=== PATIENT | female | born 1955 | race Caucasian/White ===

== ENCOUNTER 2022-03-17 07:21 | Inpatient (IN) | payer MEDICARE ==
[~2022-03-17] VITALS: Ht 165.1 cm; Wt 69.4 kg
[2022-03-17 08:00] VITALS: BP 140/71
[2022-03-17] MEDS ORDERED: BLOOD SUGAR DIAGNOSTIC 1 EACH STRIP IN ONE (08:00)
[2022-03-17] MEDS ORDERED: LORAZEPAM 0.5 MG TABLET PO PRN (08:00)
[2022-03-17] MEDS ORDERED: CALC500T89 PO (08:14)
[2022-03-17] MEDS ORDERED: LACT1CAP63 PO (08:14)
[2022-03-17] MEDS ORDERED: LEVO137T24 PO (08:14)
[2022-03-17] MEDS ORDERED: OMEP40CA21 PO (08:14)
[2022-03-17] MEDS ORDERED: CALC625T15 PO (08:14)
[2022-03-17] MEDS ORDERED: CHOL400C8 PO (08:14)
[2022-03-17] MEDS ORDERED: ESCI10TA PO (08:14)
[2022-03-17] MEDS ORDERED: LORA-259 PO (08:14)
[2022-03-17] MEDS ORDERED: PRAV40TA3 PO (08:14)
--- NOTE | 2022-03-17 09:00 | NUR ---
GPS/RN RECEIVED PT DIRECT ADMIT ON 5150 FOR DTS FROM [facility] ER ADMITTING ORDERS FROM DR NICOLE RECEIVED AND CARRIED OUT. ON FACE TO FACE ASSESSMENT NO SI OR HI REPORTED. ELFEGO MCEKON NP MADE AWARE OF ADMISSION. MEDS ARE READY TO RECONCILE. PROPERTY CHECKED FOR CONTRABAND. WILL CONTINUE TO MONITOR Q15MIN FOR SAFETY AND BEHAVIOR.
--- NOTE | 2022-03-17 09:15 | NUR ---
MEENA Clinical Note: Pt placed on a 5150 hold for danger to self. Pt was brought to the hospital due to having suicidal thoughts and wanting to jump of a bridge. Patient currently resides at home located at [address] [place] [address]; ([phone]). Patient lives with her . Patient would want to return back home when stable. SW will contact pt's daughter Vika ([phone]) to further discuss pt's treatment/discharge plan.
--- NOTE | 2022-03-17 09:15 | NUR ---
MEENA Initial Discharge Note: Patient currently resides at home located at [address] [place] [address]; ([phone]). Patient lives with her . Patient would want to return back home when stable. MEENA will contact pt's daughter Vika ([phone]) to further discuss pt's treatment/discharge plan. MEENA will work with the MD, treatment team, and family to help coordinate appropriate discharge.
--- NOTE | 2022-03-17 09:59 | NUR ---
MEENA Family Contact: SW spoke with patient's daughter Vika ([phone]) to gather collateral and discuss treatment/discharge plan. Daughter stated that pt lives with her. She stated that any new medications the pt takes she says that she is "allergic". She requested to speak to the psychiatrist. Notified Dr. Patel.
[2022-03-17] MEDS: LORAZEPAM 1 MG TABLET PO PRN ×2 (13:24→21:21)
[2022-03-17] MEDS: Fluoxetine 10 mg capsule PO SCH (14:49)
[2022-03-17] MEDS: MAG HYDROX/AL HYDROX/SIMETH 30 ML UDC PO PRN (15:13)
[2022-03-17 16:00] VITALS: BP 151/78
[2022-03-17] MEDS: ATORVASTATIN 10 MG TABLET PO SCH ×2 (17:07→17:52)
--- NOTE | 2022-03-17 19:30 | NUR ---
TAIL WORKER NOTES: RECEIVED PT IN HER ROOM, AWAKE, SITTING ON HER BED. A/O X3. CALM. PATIENT ABLE TO VERBALIZE NEEDS AND WANTS. AMBULATORY WITHOUT ASSISTANCE. PT DENIES SI/HI. ON ROOM AIR. BREATHING EVEN AND UNLABORED. NO ACUTE DISTRESS NOTED. NO C/O PAIN AT THIS TIME. SAFETY MEASURES IN PLACE. WILL CONTINUE TO MONITOR FOR SAFETY AND BEHAVIOR.
[2022-03-17 20:00] VITALS: BP 132/69
[2022-03-17] MEDS: QUETIAPINE FUMARATE 25 MG TABLET PO SCH (21:21)
--- NOTE | 2022-03-17 22:00 | NUR ---
MANAGER ADOBE NOTES: GIVEN PRN ATIVAN 1 MG PER PATIENT REQUEST. NOTED PATIENT A LITTLE ANXIOUS. ENCOURAGED PATIENT TO VERBALIZE FEELINGS. WILL CONTINUE TO MONITOR CLOSELY.
--- NOTE | 2022-03-17 22:15 | NUR ---
CARDIOPULMONARY TECHNOLOGIST CHIEF NOTES: PATIENT REFUSED ROUTINE SEROQUEL PATIENT STATED "I DO NOT WANT TO TAKE SEROQUEL WITH THE PROZAC WHICH I TOOK EARLIER, IT MIGHT MAKE ME FEEL SICK". EXPLAINED THE RISKS AND BENEFITS. OFFERED X3. PATIENT STILL REFUSED.
--- NOTE | 2022-03-17 23:30 | NUR ---
MAT INSPECTOR NOTES: ATIVAN EFFECTIVE. PATIENT SLEEPING AT THIS TIME. CALM. NO ANXIOUSNESS/AGITATION NOTED. WILL CONTINUE TO MONITOR CLOSELY FOR SAFETY AND BEHAVIOR.
--- NOTE | 2022-03-18 06:53 | NUR ---
COMPLIANCE REVIEWER NOTES: PATIENT IN HER ROOM SLEEPING. CALM. EASILY AROUSED. NO ACUTE DISTRESS NOTED. PATIENT SLEPT COMFORTABLE AND WELL. ALL NEEDS ANTICIPATED AND RENDERED. SAFETY MEASURES IN PLACE. WILL ENDORSE TO ONCOMING SHIFT FOR CONTINUITY OF CARE.
[2022-03-18] MEDS ORDERED: LEVOTHYROXINE SODIUM 100 MCG TABLET PO SCH (07:30)
[2022-03-18 07:44] LABS: ALBUMIN 3.7 g/dL (3.4-5.0); BILIRUBIN,TOTAL 0.4 mg/dL (0.2-1.0); CALCIUM, SERUM 8.3 mg/dL (8.5-10.1); CREATININE 0.8 mg/dL (0.6-1.3); POTASSIUM 4.4 mmol/L (3.5-5.1); TOTAL PROTEIN, SERUM 6.3 g/dL (6.4-8.2)
[2022-03-18 08:00] VITALS: BP 119/70
[2022-03-18] MEDS: CHOLECALCIFEROL 1,000 UNIT TABLET (VIT D3) PO SCH (08:15)
[2022-03-18] MEDS: LACTOBACILLUS RHAMNOSUS GG 1 EACH CAP.SPRINK PO SCH (08:15)
[2022-03-18] MEDS: Fluoxetine 10 mg capsule PO SCH (08:21)
[2022-03-18 08:52] LABS: THYROID STIMULATING HORMONE 3.516 uIU/mL (0.358-3.74)
[2022-03-18] MEDS: CALCIUM CARBONATE (1250) 500 MG TABLET PO SCH (09:00)
[2022-03-18] MEDS ORDERED: LEVOTHYROXINE SODIUM 137 MCG TABLET PO SCH (09:00)
[2022-03-18] MEDS ORDERED: PANTOPRAZOLE 40 MG TABLET.DR PO SCH (09:00)
--- NOTE | 2022-03-18 10:00 | NUR ---
GPS/RN PT WAS SELECTIVE WITH AM MEDS. MARCO POKER MACHINE ATTENDANT AND MD MADE AWARE.
[2022-03-18] MEDS: MAGNESIUM HYDROXIDE 30 ML UDC PO PRN (10:22)
[2022-03-18] MEDS: MAG HYDROX/AL HYDROX/SIMETH 30 ML UDC PO PRN ×2 (11:48→21:24)
[2022-03-18] MEDS: LORAZEPAM 1 MG TABLET PO PRN (12:07)
[2022-03-18 16:00] VITALS: BP 131/78
[2022-03-18] MEDS: ATORVASTATIN 10 MG TABLET PO SCH (16:33)
[2022-03-18 19:36] VITALS: BP 126/64
[2022-03-18 20:03] VITALS: BP 126/64
[2022-03-18] MEDS: MIRTAZAPINE 15 MG TABLET PO SCH (21:23)
[2022-03-18] MEDS: QUETIAPINE FUMARATE 25 MG TABLET PO SCH ×3 (21:23→22:00)
[2022-03-19] MEDS: LORAZEPAM 1 MG TABLET PO PRN ×2 (01:28→13:59)
[2022-03-19] MEDS: MAG HYDROX/AL HYDROX/SIMETH 30 ML UDC PO PRN ×2 (01:28→13:54)
--- NOTE | 2022-03-19 04:41 | NUR ---
FLAT AFFECT, DEPRESSED, TALKING TO ROOM MATE, SELECTIVE WITH MEDICATION, REFUSED SEROQUEL STATING " I DON'T TAKE THAT MEDICATION, I WILL SPEAK TO MY DOCTOR ABOUT IT. TOOK ONLY REMERON. ATIVAN GIVEN.
[2022-03-19] MEDS: SYNTHROID 100 MCG PO SCH (07:12)
[2022-03-19 08:00] VITALS: BP 128/64
[2022-03-19] MEDS ORDERED: PANTOPRAZOLE 40 MG/PACK PACK PO SCH (11:00)
[2022-03-19] MEDS: OMEPRAZOLE 40 MG PO SCH (11:28)
[2022-03-19] MEDS: LACTOBACILLUS RHAMNOSUS GG 1 EACH CAP.SPRINK PO SCH (11:29)
[2022-03-19] MEDS: CHOLECALCIFEROL 1,000 UNIT TABLET (VIT D3) PO SCH (11:30)
[2022-03-19] MEDS: CALCIUM CARBONATE (1250) 500 MG TABLET PO SCH (11:30)
[2022-03-19] MEDS: KETOROLAC TROMETHAMINE 10 MG TABLET PO PRN ×2 (12:15→18:31)
--- NOTE | 2022-03-19 14:50 | NUR ---
RN-CO: NOTIFIED DR ENCARNACION REGARDING HER 72 HOUR HOLD EXPIRING TODAY.
[2022-03-19 16:00] VITALS: BP 149/67
[2022-03-19] MEDS: ATORVASTATIN 10 MG TABLET PO SCH (18:00)
[2022-03-19 20:31] VITALS: BP 117/50
[2022-03-19] MEDS: MIRTAZAPINE 15 MG TABLET PO SCH (21:07)
[2022-03-19] MEDS: QUETIAPINE FUMARATE 25 MG TABLET PO SCH (21:07)
[2022-03-20] MEDS: LORAZEPAM 1 MG TABLET PO PRN ×3 (01:30→21:06)
[2022-03-20] MEDS: MAG HYDROX/AL HYDROX/SIMETH 30 ML UDC PO PRN ×3 (01:32→18:05)
--- NOTE | 2022-03-20 01:36 | NUR ---
RN NOTE PRN ATIVAN AND MAALOX GIVEN FOR ANXIETY TOLERATED WELL.
[2022-03-20] MEDS: SYNTHROID 100 MCG PO SCH (07:25)
[2022-03-20 08:00] VITALS: BP 134/69
[2022-03-20] MEDS: OMEPRAZOLE 40 MG PO SCH (08:35)
[2022-03-20] MEDS: LACTOBACILLUS RHAMNOSUS GG 1 EACH CAP.SPRINK PO SCH (08:35)
[2022-03-20] MEDS: CALCIUM CARBONATE (1250) 500 MG TABLET PO SCH (08:35)
[2022-03-20] MEDS: CHOLECALCIFEROL 1,000 UNIT TABLET (VIT D3) PO SCH (08:35)
[2022-03-20] MEDS: buPROPion SR 100 MG TABLET.ER PO SCH (09:48)
--- NOTE | 2022-03-20 09:48 | NUR ---
NURSE NOTE: PT REQUESTED MAALOX TO BE GIVEN WITH WELLBUTRIN BECAUSE IT UPSETS HER STOMACH. PT CHENG WELL. WILL CONT TO MONITOR.
[2022-03-20] MEDS: KETOROLAC TROMETHAMINE 10 MG TABLET PO PRN ×2 (12:03→18:06)
--- NOTE | 2022-03-20 12:05 | NUR ---
NURSE NOTE: PT C/O PAIN TO L ARM LEVEL 9/10. REQUESTED TORADOL. ADMINISTERED ORDERED. PT CHENG WELL. WILL CONT TO MONITOR.
--- NOTE | 2022-03-20 12:15 | NUR ---
NURSE NOTE: PT FEELING ANXIOUS, REQUESTED ATIVAN. ADMINISTERED ORDERED. PT CHENG WELL. WILL CONT TO MONITOR.
--- NOTE | 2022-03-20 13:00 | NUR ---
NURSE NOTE: PT CALM AT THIS TIME. ANXIETY HAS SUBSIDED. PT ALSO STATED THAT SHE IS FEELING BETTER. PAIN AT 2/10. TORADOL AND ATIVAN EFFECTIVE AT THIS TIME. WILL CONT TO MONITOR.
[2022-03-20 16:00] VITALS: BP 125/72
[2022-03-20] MEDS: ATORVASTATIN 10 MG TABLET PO SCH (18:04)
--- NOTE | 2022-03-20 18:06 | NUR ---
NURSE NOTE: PT IN PAIN LEVEL8/10. REQUESTED TORADOL PO. ADMINISTERED ORDERED. PT CHENG WELL. WILL CONT TO MONITOR.
[2022-03-20 20:13] VITALS: BP 120/66
[2022-03-20] MEDS: QUETIAPINE FUMARATE 25 MG TABLET PO SCH (21:02)
[2022-03-20] MEDS: ZOLPIDEM TARTRATE 5 MG TABLET PO PRN (23:07)
[2022-03-21 08:00] VITALS: BP 136/59
[2022-03-21] MEDS: SYNTHROID 100 MCG PO SCH (08:02)
[2022-03-21] MEDS: OMEPRAZOLE 40 MG PO SCH ×2 (08:08→09:00)
[2022-03-21] MEDS: LACTOBACILLUS RHAMNOSUS GG 1 EACH CAP.SPRINK PO SCH ×2 (08:08→09:00)
[2022-03-21] MEDS: CHOLECALCIFEROL 1,000 UNIT TABLET (VIT D3) PO SCH ×2 (08:08→09:00)
[2022-03-21] MEDS: KETOROLAC TROMETHAMINE 10 MG TABLET PO PRN ×3 (08:09→23:56)
[2022-03-21] MEDS: CALCIUM CARBONATE (1250) 500 MG TABLET PO SCH ×2 (08:09→09:00)
--- NOTE | 2022-03-21 08:09 | NUR ---
RN NOTE PATIENT IS ASKING FOR TORADOL FOR PAIN IN THE SHOULDERS AT THE SCALE OF 6/10. TORADOL MEDS GIVEN PRN FOR PAIN. WILL MONITOR.
[2022-03-21] MEDS: buPROPion SR 100 MG TABLET.ER PO SCH (08:12)
[2022-03-21] MEDS: LORAZEPAM 1 MG TABLET PO PRN ×2 (09:34→20:52)
[2022-03-21] MEDS: MAG HYDROX/AL HYDROX/SIMETH 30 ML UDC PO PRN (09:34)
--- NOTE | 2022-03-21 09:34 | NUR ---
RN NOTES PATIENT ASKED FOR ATIVAN FOR ANXIETY AND MAALOX FOR ABDOMINAL DISCOMFORT. ATIVAN PO AND MAALOX PO MEDS GIVEN. WILL MONITOR.
[2022-03-21 16:00] VITALS: BP 135/68
[2022-03-21] MEDS: ATORVASTATIN 10 MG TABLET PO SCH (17:27)
[2022-03-21 20:19] VITALS: BP 134/69
[2022-03-22 08:00] VITALS: BP 125/64
[2022-03-22] MEDS: SYNTHROID 100 MCG PO SCH (08:11)
[2022-03-22] MEDS: OMEPRAZOLE 40 MG PO SCH (08:21)
[2022-03-22] MEDS: CHOLECALCIFEROL 1,000 UNIT TABLET (VIT D3) PO SCH (08:22)
[2022-03-22] MEDS: CALCIUM CARBONATE (1250) 500 MG TABLET PO SCH (08:22)
[2022-03-22] MEDS: LACTOBACILLUS RHAMNOSUS GG 1 EACH CAP.SPRINK PO SCH (08:23)
[2022-03-22] MEDS: buPROPion SR 100 MG TABLET.ER PO SCH (08:23)
[2022-03-22] MEDS: KETOROLAC TROMETHAMINE 10 MG TABLET PO PRN ×2 (09:07→17:43)
--- NOTE | 2022-03-22 09:07 | NUR ---
RN notes: pt c/o of L shoulder, back and generalized pain 10/26, medicated as ordered, will reassess per unit protocol
[2022-03-22] MEDS: LORAZEPAM 1 MG TABLET PO PRN ×2 (13:15→21:09)
[2022-03-22] MEDS: MAG HYDROX/AL HYDROX/SIMETH 30 ML UDC PO PRN (13:15)
--- NOTE | 2022-03-22 13:15 | NUR ---
RN NOTES: PT ASKED FOR ATIVAN, ADMINISTERED PRN ATIVAN PER MD ORDER.
[2022-03-22] MEDS ORDERED: NAPROXEN 500 MG TABLET PO PRN (13:30)
[2022-03-22 16:00] VITALS: BP 110/55
[2022-03-22] MEDS: ATORVASTATIN 10 MG TABLET PO SCH (18:05)
--- NOTE | 2022-03-22 18:30 | NUR ---
RN NOTES; PT GIVEN 30 DAY HOLD DOCUMENT, PT RIPPED PAPER AND STATED " I OWN THIS BUILDING, I DON'T NEED THIS", THEN PT ASKED FOR COFFEE WITH CREAM AND SUGAR.
[2022-03-22 19:47] VITALS: BP 131/70
--- NOTE | 2022-03-22 21:10 | NUR ---
Pt c/o anxiety. Least restrictive measures ineffective. Ativan 1 mg po prn given as ordered. Will continue to monitor.
[2022-03-22] MEDS: ZOLPIDEM TARTRATE 5 MG TABLET PO PRN (22:14)
--- NOTE | 2022-03-22 22:14 | NUR ---
Pt c/o insomnia. Least restrictive measures ineffective. Ambien 5 mg po prn given as ordered. Will continue to monitor.
--- NOTE | 2022-03-22 23:26 | NUR ---
Post 1 hr Iainien effective. Pt asleep in bed easy to arouse. Will continue to monitor. Frequent visual check done for safety.
[2022-03-23] MEDS: KETOROLAC TROMETHAMINE 10 MG TABLET PO PRN ×3 (05:22→21:13)
--- NOTE | 2022-03-23 05:22 | NUR ---
Pt c/o Left Shoulder pain 5/10. Toradol 10 mg 1 tab po prn given as ordered. Will continue to monitor.
--- NOTE | 2022-03-23 06:46 | NUR ---
Post 1 hr Toradol effective. KS 0/10. Will continue to monitor. Will endorse to next shift.
[2022-03-23] MEDS: SYNTHROID 100 MCG PO SCH (07:50)
[2022-03-23 08:00] VITALS: BP 123/65
[2022-03-23] MEDS: LACTOBACILLUS RHAMNOSUS GG 1 EACH CAP.SPRINK PO SCH (08:34)
[2022-03-23] MEDS: buPROPion SR 100 MG TABLET.ER PO SCH (08:35)
[2022-03-23] MEDS: CALCIUM CARBONATE (1250) 500 MG TABLET PO SCH (08:35)
[2022-03-23] MEDS: CHOLECALCIFEROL 1,000 UNIT TABLET (VIT D3) PO SCH (08:35)
[2022-03-23] MEDS: OMEPRAZOLE 40 MG PO SCH (08:42)
[2022-03-23] MEDS: MAG HYDROX/AL HYDROX/SIMETH 30 ML UDC PO PRN ×2 (08:49→14:47)
[2022-03-23] MEDS: LORAZEPAM 1 MG TABLET PO PRN ×3 (10:45→23:12)
--- NOTE | 2022-03-23 10:49 | NUR ---
RN-NOTES PATIENT REQUESTING ATIVAN,STATED" I NEED MY ATIVAN FOR MY ANXIETY". ATIVAN 1MG P.O GIVEN PRN ORDER. WILL CONT. MONITORING FOR SAFETY AND BEHAVIOR.
--- NOTE | 2022-03-23 11:30 | NUR ---
Rehab Contact: MEENA contacted Shyam family service caseworker ([phone]) and requested to review pt's clinicals for ARU. Shyam stated that pt does not qualify for ARU.
--- NOTE | 2022-03-23 11:50 | NUR ---
RN-NOTES PATIENT LYING IN BED AWAKE,A/O X3 CALM,NO ACUTE DISTRESS NOTED.
--- NOTE | 2022-03-23 11:55 | NUR ---
Court Notification: SW contacted patient's daughter Vika ([phone]) to notify of 3803 hearing.
--- NOTE | 2022-03-23 11:57 | NUR ---
MEENA Family Contact: MEENA spoke with patient's daughter Vika ([phone]) she stated that she is interested in a Residential Program for pt and would want to fax documents to this business writer to review. MEENA shared fax information, however, it did not come through. MEENA provided Email and is waiting for documents.
--- NOTE | 2022-03-23 11:57 | NUR ---
Court Hearing: Patient's court hearing for 5250 was today and it was upheld for danger to self and GD.
[2022-03-23] MEDS ORDERED: buPROPion SR 100 MG TABLET.ER PO SCH (15:40)
[2022-03-23 16:00] VITALS: BP 146/70
[2022-03-23] MEDS: ATORVASTATIN 10 MG TABLET PO SCH (17:13)
--- NOTE | 2022-03-23 17:13 | NUR ---
RN-NOTES PATIENT REQUESTING ATIVAN. ATIVAN 1MG P.O GIVEN PRN ORDER. WILL CONT. MONITORING FOR SAFETY AND BEHAVIOR.
--- NOTE | 2022-03-23 17:38 | NUR ---
RN-NOTES PATIENT IS VISIBLE IN THE UNIT A/OX 3 AMBULATORY STEADY GAIT. NOTED WITH ANXIETY ,EASILY IRRITABLE BEHAVIOR. PRN MEDICATIONS GIVEN .COMPLIANT WITH MEDICATIONS. PATIENT ABLE TO MAKE NEEDS KNOWN TO THE STAFF. ALL NEEDS ATTENDED AND ANTICIPATED. WILL CONT. MONITORING FOR SAFETY AND BEHAVIOR. WILL ENDORSE TO INCOMING NURSE FOR CONTINUITY OF CARE.
--- NOTE | 2022-03-23 19:57 | NUR ---
Engineer Technical Staff notes. Received patient inside her room alert oriented x 4. Patient appears depressed, anxious, needy, med seeker. Patient also appears calm and cooperative at this time. Will continue to monitor for safety and behavior.
[2022-03-23 20:04] VITALS: BP 126/91
--- NOTE | 2022-03-24 04:43 | NUR ---
2112 Toradol 10 mg given, Pt complain of left shoulder pain. Effective after an hour, Patient denies pain. 2311 Ativan 5 mg given, Patient c/o anxiety. Effective. Patient sleeping comfortably in bed. Will continue to monitor for safety and behavior.
[2022-03-24] MEDS: KETOROLAC TROMETHAMINE 10 MG TABLET PO PRN ×3 (05:16→20:14)
[2022-03-24] MEDS: MAGNESIUM HYDROXIDE 30 ML UDC PO PRN (05:25)
--- NOTE | 2022-03-24 05:26 | NUR ---
0517 Toradol 10 mg given, Pt complain of left shoulder pain. 0525 MOM given Patient c/o constipation. Will continue to monitor.
[2022-03-24] MEDS: SYNTHROID 100 MCG PO SCH (07:59)
[2022-03-24 08:00] VITALS: BP 133/70
[2022-03-24] MEDS: LACTOBACILLUS RHAMNOSUS GG 1 EACH CAP.SPRINK PO SCH (08:59)
[2022-03-24] MEDS: CALCIUM CARBONATE (1250) 500 MG TABLET PO SCH (08:59)
[2022-03-24] MEDS: CHOLECALCIFEROL 1,000 UNIT TABLET (VIT D3) PO SCH (09:00)
[2022-03-24] MEDS: OMEPRAZOLE 40 MG PO SCH (09:00)
--- NOTE | 2022-03-24 09:09 | NUR ---
MEENA Family Contact: MEENA received the documents that the daughter Vika ([phone]) required. MEENA stated that this sign writer hand will be in contact with the facility to coordinate this. Vika requested for this sign writer hand to contact pt's sister Dilan ([phone]) to gather information about the facility. MEENA contacted sister Dilan ([phone]) who stated that they would want pt to go to [facility]. MEENA stated this sign writer hand will coordinate.
--- NOTE | 2022-03-24 09:11 | NUR ---
[facility] Facility: MEENA contacted Naomy Admin ([phone]) to discuss of referral. She stated to send 602a form, H & P, medication list, and progress notes. MEENA completed 602a and waiting for MD to sign. MEENA will fax referral to ([phone]). Naomy requested chest x-ray and home health referral. MEENA notified charge nurse Oli.
--- NOTE | 2022-03-24 09:37 | NUR ---
MEENA Note: SW met with pt in regards to her concerns. Pt stated that Dr. Patel was yelling and screaming and shouting at pt and reported to daughter that she is a drug abuser. SW stated that this was not true and that this engineering writer was present when Dr. Patel was speaking to daughter Vika on 03/24/2022 between 10-11AM. Dr. Patel was explaining to daughter the hospital protocol and safety on the unit. Dr. Patel was also discussing pt's discharge plan and daughter has been working with SW. Daughter explained that it was not safe for pt to return back home. SW re-assured and discussed the protocol of the unit. Pt was accusing of the staff and doctor due to the shoulder strap being removed.
[2022-03-24] MEDS: buPROPion SR 100 MG TABLET.ER PO SCH (09:58)
[2022-03-24] MEDS ORDERED: LORAZEPAM 1 MG TABLET PO ONE (10:30)
--- NOTE | 2022-03-24 11:19 | NUR ---
MEENA Note: SW spoke with pt and she was confused in regards to what she would want to do. She is unsure if she wants to stay at the hospital or be discharged to a hotel. She ideally would want to go to [facility] but pt is aware that it is a process for the facility to review.
--- NOTE | 2022-03-24 11:19 | NUR ---
[facility] Facility: MEENA faxed clinicals to Naomy ([phone]) to review if pt is accepted or not.
--- NOTE | 2022-03-24 11:19 | NUR ---
MEENA Family Contact: MEENA spoke with pt's daughter Vika ([phone]) and Dilan pt's sister ([phone]) and explained pt's current circumstance. SW explained that her pain strap around her shoulder would need to be removed because it is not allowed in a psychiatric unit for safety purposes. Family was understanding of this. Daughter and sister stated that they would want pt to go to [facility] and do not want her to be discharged home or to a hotel. Daughter stated that she will not be paying for her hotel. MEENA will continue working with family to coordinate this.
[2022-03-24] MEDS ORDERED: ACETAMINOPHEN 325 MG TABLET PO PRN (12:00)
--- NOTE | 2022-03-24 12:02 | NUR ---
RN-NOTES DR. BETHEA IN THE UNIT AND SPOKE TO THE PATIENT. PATIENT DID VERIFIED TO THE MD THAT SHE'S NOT ALLERGY TO ACETAMINOPHEN AND THAT SHE'S ALLERGY TO CODEINE. DR. BETHEA GAVE A VERBAL ORDER OF TYLENOL 650MG P.O Q6HR PRN AND OMEPRAZOLE DR 40MG P.O EVERY 1300 DAILY. NOTED AND CARRIED OUT. Addendum: 03/24/22 at 1220 by MARIANO CHAVARRIA RN IN ADDITION TO MY ABOVE NOTES MD ALSO VERBAL ORDERED OT FOR LEFT SHOULDER PAIN.
--- NOTE | 2022-03-24 13:36 | NUR ---
[facility] Facility: MEENA faxed clinicals to Naomy ([phone]) from [facility] who stated that pt is accepted and pt can come to the facility on 03/27 her bed is available then.
--- NOTE | 2022-03-24 13:37 | NUR ---
MEENA Family Contact: MEENA spoke with pt's daughter Vika ([phone]) who stated that on Sunday03/25/2021 she will be giving [place] her deposit so that the transition on Monday 03/27 would be smooth. She stated that she will pick pack worker pt on Sunday or send a local company truck driver between 1-2PM.
[2022-03-24] MEDS: HOME MED MISCELLANEOUS PO SCH (13:41)
--- NOTE | 2022-03-24 14:16 | NUR ---
SW Note: Pt complaining that the strap on her shoulder has been removed and she was upset. SW explained the safety for herself and for others. Pt appeared to not be understanding and frustrated. Pt stated "other patient's have plastic bags". SW shared that the unit consists of patient's who are on a hold and patient's who are a clinical trial patient.
--- NOTE | 2022-03-24 14:18 | NUR ---
Edward: MEENA received a call from [employer] and spoke with Ledy #[phone] ([phone], [phone]: [phone]). Ledy stated that patient has been complaining that her shoulder strap was removed and that other patient's have plastic bags. Ledy was understanding of this when MEENA explained patient's who are on hold and patient's who are clinical trial. She stated that she will try to explain pt this herself. MEENA will speak with pt as well.
--- NOTE | 2022-03-24 14:35 | NUR ---
MEENA Family Contact: MEENA was present at 10:24AM while Dr. Patel was on the phone with pt's daughter Vika ([phone]). Dr. Patel explained daughter her current situation and explained that the strap on her shoulder needs to be removed due to unit protocols. Daughter was understanding of this. Due to the strap being removed, Dr. Patel stated that pt is wanting to be discharged home or to a hotel and daughter was not agreeable of this. Daughter stated that she has been working to find a facility for the pt because her returning back home is unsafe. Daughter and SW have been working to find a safe place for pt.
--- NOTE | 2022-03-24 14:40 | NUR ---
MEENA Note: SW met with patient with staff member Dennise ying. SW addressed pt's concern about the strap being removed and the protocols/safety vs. pt's who are clinical trial pts. Pt stated "I understand" but continued to complain about other patient's care and how the bathrooms are not clean. SW re-addressed her that the staff has been taking care of the patient's and her bathroom has been clean. Pt was not accepting and was disagreeing. SW apologized for her being unhappy and encouraged her to speak to her assigned nurse if required with assistance on certain things.
[2022-03-24 16:00] VITALS: BP 132/74
[2022-03-24] MEDS: ATORVASTATIN 10 MG TABLET PO SCH (17:43)
--- NOTE | 2022-03-24 18:37 | NUR ---
RN-NOTES PATIENT IS VISIBLE IN THE UNIT A/OX3 AMBULATORY STEADY GAIT. NOTED WITH ANXIETY ,EASILY IRRITABLE BEHAVIOR.PRN MEDICATIONS GIVEN.REFUSED TO ATTEND GROUPS DESPITE ENCOURAGEMENT .COMPLIANT WITH MEDICATIONS. PATIENT ABLE TO MAKE NEEDS KNOWN TO THE STAFF. ALL NEEDS ATTENDED AND ANTICIPATED.WILL CONT. MONITORING FOR SAFETY AND BEHAVIOR.WILL ENDORSE TO INCOMING NURSE FOR CONTINUITY OF CARE.
[2022-03-24] MEDS: LORAZEPAM 1 MG TABLET PO PRN (19:50)
--- NOTE | 2022-03-24 19:52 | NUR ---
RN NOTES: ANXIETY PT. NOTED VERY ANXIOUS PACING IN THE HALLWAY VERY ANXIOUS ,PARNOID,NEEDY DEMENDING NONREDIRECTABLE,PRN ATIVAN 1 MG PO GIVEN WILL CONTINUE TO MONITOR.
[2022-03-24 20:14] VITALS: BP 135/75
--- NOTE | 2022-03-24 20:58 | NUR ---
RN NOTES: RECEIVED PATIENT IN HER ROOM RESTING AT THIS TIME. BREATHING UNLABORED NOT IN ANY FORM OF DISTRESS, HYPERVERBAL . PATIENT REMAINS ANXIOUS, PARANOID ,NEEDY,DEMANDING , FOCUS ON PRN MEDS GUARDED.ALL NEEDS ATTENDED AND ANTICIPATED, DENIES SI/HI/AVH AT THIS TIME. NO C/O PAIN OR DISCOMFORT AT THIS TIME. SAFETY PRECAUTIONS MAINTAINED. WILL CONTINUE TO MONITOR Q15MIN ROUNDS FOR SAFETY AND BEHAVIOR.
[2022-03-25] MEDS: KETOROLAC TROMETHAMINE 10 MG TABLET PO PRN ×3 (02:17→18:06)
[2022-03-25 08:00] VITALS: BP 130/70
[2022-03-25] MEDS: SYNTHROID 100 MCG PO SCH (08:14)
[2022-03-25] MEDS: LACTOBACILLUS RHAMNOSUS GG 1 EACH CAP.SPRINK PO SCH (08:16)
[2022-03-25] MEDS: CHOLECALCIFEROL 1,000 UNIT TABLET (VIT D3) PO SCH (08:16)
[2022-03-25] MEDS: CALCIUM CARBONATE (1250) 500 MG TABLET PO SCH (08:17)
[2022-03-25] MEDS: LORAZEPAM 1 MG TABLET PO PRN ×3 (09:10→23:20)
--- NOTE | 2022-03-25 09:10 | NUR ---
GPS/RN ATIVAN 1MG PO ADMINISTERED ORDERED FOR ANXIETY
[2022-03-25] MEDS: buPROPion SR 100 MG TABLET.ER PO SCH (10:19)
[2022-03-25] MEDS: HOME MED MISCELLANEOUS PO SCH (14:15)
[2022-03-25 16:59] VITALS: BP 108/58
[2022-03-25] MEDS: ATORVASTATIN 10 MG TABLET PO SCH (17:38)
--- NOTE | 2022-03-25 19:55 | NUR ---
TUNNEL DRIER OPERATOR GPS NOTES: RECEIVED PATIENT IN HER ROOM RESTING AT THIS TIME. BREATHING UNLABORED NOT IN ANY FORM OF DISTRESS, HYPERVERBAL . PATIENT REMAINS ANXIOUS, PARANOID ,NEEDY,DEMANDING , FOCUS ON PRN MEDS GUARDED.ALL NEEDS ATTENDED AND ANTICIPATED, DENIES SI/HI/AVH AT THIS TIME. NO C/O PAIN OR DISCOMFORT AT THIS TIME. SAFETY PRECAUTIONS MAINTAINED. WILL CONTINUE TO MONITOR Q15MIN ROUNDS FOR SAFETY AND BEHAVIOR.
[2022-03-25 20:00] VITALS: BP 114/59
--- NOTE | 2022-03-25 23:20 | NUR ---
BODY BUMPER GPS NOTE: PT WOKE UP AND REQUESTED FOR PRN ATIVAN 1 MG FOR ANXIETY- PRN MEDICATION GIVEN ORDERED, NOTED VS BP 123/68 HR 70 RR 16 02 SAT 98%. WILL CONT TO MONITOR AND RE-ASSESS MEDICATION IN AN HOUR.
--- NOTE | 2022-03-26 00:20 | NUR ---
1 HR POST ATIVAN, PT NOTED SLEEPING, EASY TO AROUSE, BREATHING EVEN AND UNLABORED. SAFETY MEASURES OBSERVED. WILL CONT TO MONITOR.
--- NOTE | 2022-03-26 01:16 | NUR ---
GPS STRINGED INSTRUMENT TUNER NOTE- PT WOKE UP AND REQUESTED FOR NEW BAGS OF ICE, NEEDS PROVIDED AND ATTENDED. WILL CONT TO MONITOR.
--- NOTE | 2022-03-26 02:20 | NUR ---
GPS HOUSEKEEPING/LAUNDRY SUPERVISOR NOTE: PT NOTED SLEEPING AT THIS TIME, EASY TO AROUSE, BREATHING EVEN AND UNLABORED. SAFETY MEASURES NOTED. WILL CONT TO MONITOR.
[2022-03-26] MEDS: KETOROLAC TROMETHAMINE 10 MG TABLET PO PRN ×3 (03:29→18:30)
--- NOTE | 2022-03-26 03:29 | NUR ---
GPS RN NOTE, PATIENT HAS A COMPLAINT OF CHRONIC LEFT SHOULDER PAIN AT 7 OUT OF 10 ON THE PAIN SCALE AND IS REQUESTING TORADOL AT THIS TIME. PATIENT VITAL SIGNS ARE STABLE. GAVE TORADOL 10MG PO Q6HR PRN ORDERED. WILL REASSESS PAIN AND I WILL CONTINUE TO MONITOR THIS PATIENT WITH THE HELP OF STAFF.
--- NOTE | 2022-03-26 04:29 | NUR ---
1 HR POST PRN TORADOL- PRN EFFECTIVE, PT WENT BACK TO BED, ASLEEP NO S/SX OF PAIN OR DISCOMFORT, BREATHING EVEN AND UNLABORED. CONT TO MONITOR.
--- NOTE | 2022-03-26 06:03 | NUR ---
GPS BOX MAKER NOTE : PT COMFORTABLY RESTING IN BED, BEHAVIOR DURING SHIFT- POLITE , NEEDY , ANXIOUS, GUARDED, PARANOID. SLEPT WELL DURING SHIFT, TOLERATED MEDS WITH NO A/R NOTED. NEEDS ATTENDED AT ALL TIME. SAFETY MEASURES OBSERVED. WILL CONT. TO MONITOR, WILL ENDORSE CONTINUATION OF CARE TO AM INCOMING NURSE.
[2022-03-26 08:00] VITALS: BP 109/70
[2022-03-26] MEDS: SYNTHROID 100 MCG PO SCH (08:20)
[2022-03-26] MEDS: LORAZEPAM 1 MG TABLET PO PRN ×3 (08:48→23:37)
[2022-03-26] MEDS: CALCIUM CARBONATE (1250) 500 MG TABLET PO SCH (09:00)
[2022-03-26] MEDS: LACTOBACILLUS RHAMNOSUS GG 1 EACH CAP.SPRINK PO SCH (09:00)
[2022-03-26] MEDS: buPROPion SR 100 MG TABLET.ER PO SCH (10:30)
[2022-03-26] MEDS: CHOLECALCIFEROL 1,000 UNIT TABLET (VIT D3) PO SCH (12:21)
[2022-03-26] MEDS: HOME MED MISCELLANEOUS PO SCH (12:48)
[2022-03-26] MEDS: MAGNESIUM HYDROXIDE 30 ML UDC PO PRN (14:07)
--- NOTE | 2022-03-26 14:08 | NUR ---
SHANNENCO: MOM GIVEN FOR C/O CONSTIPATION.
[2022-03-26 16:00] VITALS: BP 124/66
[2022-03-26] MEDS: ATORVASTATIN 10 MG TABLET PO SCH (17:29)
[2022-03-26 20:22] VITALS: BP 114/60
--- NOTE | 2022-03-26 23:38 | NUR ---
Pt c/o anxiety. Least restrictive measures ineffective. Ativan 1 mg po prn given as ordered. Will continue to monitor.
--- NOTE | 2022-03-26 23:47 | NUR ---
Pt c/o headache 05/26. tylenol 650 mg po prn given as ordered. Will continue to monitor.
--- NOTE | 2022-03-27 01:00 | NUR ---
Post 1 hr Ativan effective. Pt calm. Post 1 hr Tylenol effective. TN 0/10. Will continue to monitor. Frequent visual check done for safety.
[2022-03-27] MEDS: KETOROLAC TROMETHAMINE 10 MG TABLET PO PRN ×2 (06:27→12:03)
[2022-03-27] MEDS: MAGNESIUM HYDROXIDE 30 ML UDC PO PRN (06:32)
--- NOTE | 2022-03-27 06:33 | NUR ---
Pt c/o Right shoulder pain. Toradol 10 mg po prn given as ordered. Pt c/o constipation. MOM 30 ml po prn given as ordered. Will continue to monitor.
[2022-03-27 08:00] VITALS: BP 122/69
--- NOTE | 2022-03-27 08:04 | NUR ---
SW Discharge Note: Patient will be discharged to [facility] located at [address] [place] [address]; ([phone]). Patients daughter Vika ([phone]) will mixing picker tender pt between 1-2PM. Naomy Director of [facility] ([phone]) is accepting pt today. Pt denies suicidal or homicidal ideation. Pt denies visual/auditory hallucinations. Patient will follow up with Dr. Sheffield at the facility [address] [place] [address]; ([phone]) who will monitor and provide psychotropic medications. Patient presents with euthymic mood and congruent affect.
[2022-03-27] MEDS: SYNTHROID 100 MCG PO SCH (08:17)
[2022-03-27] MEDS: CHOLECALCIFEROL 1,000 UNIT TABLET (VIT D3) PO SCH (08:36)
[2022-03-27] MEDS: CALCIUM CARBONATE (1250) 500 MG TABLET PO SCH (08:36)
[2022-03-27] MEDS: LACTOBACILLUS RHAMNOSUS GG 1 EACH CAP.SPRINK PO SCH (08:36)
[2022-03-27] MEDS: buPROPion SR 100 MG TABLET.ER PO SCH (10:10)
[2022-03-27] MEDS: LORAZEPAM 1 MG TABLET PO PRN (10:19)
[2022-03-27] MEDS: HOME MED MISCELLANEOUS PO SCH (13:00)
--- NOTE | 2022-03-27 14:00 | NUR ---
NURSE NOTE: 66 Y/O FEMALE DISCHARGED TO [facility] IN [place]. COMPLIANT WITH MEDICATIONS, COOPERATIVE WITH TREATMENT PLANS. PT DENIES SI/HI AND INSTRUCTED TO GO TO THE CLOSEST ER OR CALL 911 IF DEVELOPING SI/HI. BEHAVIOR IMPROVED, PSYCHIATRIC TX PLANS MET. MEDICAL TX PLANS DEFERRED FOR CONTINUAL MONITORING. EDUCATED PT ABOUT AFTER CARE PLAN AND COPY PROVIDED. RETURNED PERSONAL BELONGINGS TO PT. DR NICOLE DISCONTINUED PSYCH HOLD. BOTH DR NICOLE AND DR RUTLEDGE DISCHARGED PT. PRESCRIPTION FOR WELLBUTRIN AND TORADOL GIVEN TO PT. CALLED MEDS IN SO THAT PT CAN GET THEM ON WAY TO [facility]. PT SIGNED DISCHARGE PAPERWORK. PT LEFT UNIT AT 1400 VIA WHEELCHAIR.
== END 2022-03-27 14:00 | DRG 885 ==
LOC: GPS 07:21
PROVIDERS: ADMIT Psychiatry & Neurology Psychiatry
DX: F33.3 Major depressive disorder, recurrent, severe with psychotic symptoms (principal); R45.851 Suicidal ideations; S46.22 Laceration of muscle, fascia and tendon of other parts of biceps; F29 Unspecified psychosis not due to a substance or known physiological condition; F41.9 Anxiety disorder, unspecified; F43.21 Adjustment disorder with depressed mood; F60.9 Personality disorder, unspecified; E89.0 Postprocedural hypothyroidism; Z98.890 Other specified postprocedural states; Z79.899 Other long term (current) drug therapy; M19.90 Unspecified osteoarthritis, unspecified site; M79.7 Fibromyalgia; G89.4 Chronic pain syndrome; Z86.39 Personal history of other endocrine, nutritional and metabolic disease; X58.XXXA Exposure to other specified factors, initial encounter; Y92.9 Unspecified place or not applicable; K58.9 Irritable bowel syndrome, unspecified; Z91.81 History of falling; Z73.6 Limitation of activities due to disability; R53.1 Weakness; R27.8 Other lack of coordination; G31.84 Mild cognitive impairment of uncertain or unknown etiology
CPT/HCPCS: 36415; 71045-TC; 80053-TC; 80061-TC; 84443-TC; 97112-TC; 97116-TC; 97530-TC